=== PATIENT | male | born 1940 | race Asian ===

== ENCOUNTER 2019-07-11 06:53 | Inpatient (IN) | payer OTHER, MEDICAID ==
[~2019-07-11] VITALS: Ht 167.6 cm; Wt 69.9 kg
[2019-07-11 06:53] VITALS: BP_SYST 186
--- NOTE | 2019-07-11 06:53 | NUR ---
Pt biba to bed 2 for evaluation
[2019-07-11] MEDS ORDERED: NS 500 ML IV ONE (07:00)
[2019-07-11] MEDS ORDERED: PANTOPRAZOLE SODIUM 40 MG/VIAL (PROTONIX) IVP ONE (07:00)
[2019-07-11] MEDS ORDERED: ONDANSETRON HCL 4 MG/2 ML VIAL IVP ONE (07:00)
--- NOTE | 2019-07-11 07:15 | NUR ---
Pt bib EMS c/o N/V from [facility].Pt hypertensive upon presentation. Pt denies pain at this time.
[2019-07-11] MEDS ORDERED: LIP10 PO (07:22)
[2019-07-11] MEDS ORDERED: NOR10 PO (07:22)
[2019-07-11] MEDS ORDERED: DOCU-144 PO (07:23)
[2019-07-11] MEDS ORDERED: TAMS-11 PO (07:24)
[2019-07-11] MEDS ORDERED: COR25 PO (07:24)
--- NOTE | 2019-07-11 07:25 | NUR ---
ER at bedside examining patient.
[2019-07-11] MEDS ORDERED: HYDR-4038 PO (07:26)
[2019-07-11] MEDS ORDERED: FURO-149 PO (07:27)
[2019-07-11] MEDS ORDERED: INSU100V11 SQ (07:27)
[2019-07-11] MEDS ORDERED: RIVA15TA PO (07:28)
[2019-07-11] MEDS ORDERED: METF1000 PO (07:28)
[2019-07-11 07:31] LABS: BASOPHILS # (AUTO) 0.1 K/uL (0.0-0.2); BASOPHILS % (AUTO) 0.8 % (0.0-2.0); EOSINOPHILS # (AUTO) 0.3 K/uL (0.0-0.4); EOSINOPHILS % (AUTO) 2.4 % (0.0-4.0); HEMATOCRIT 39.5 % (36-54); HEMOGLOBIN 13.8 g/dL (14.0-18.0); LYMPHOCYTES # (AUTO) 1.4 K/uL (1.0-5.5); LYMPHOCYTES % (AUTO) 10.8 % (20.5-51.5); MEAN CORPUSCULAR HEMOGLOBIN 31 pg (27-31); MEAN CORPUSCULAR HGB CONC 35 % (32-36); MEAN CORPUSCULAR VOLUME 90 fL (79.0-98.0); MONOCYTES # (AUTO) 0.6 K/uL (0.0-1.0); MONOCYTES % (AUTO) 4.7 % (1.7-9.3); NEUTROPHILS # (AUTO) 10.5 K/uL (1.8-7.7); NEUTROPHILS % (AUTO) 81.3 % (40.0-70.0); PLATELET COUNT (AUTO) 216 K/uL (130-430); RED BLOOD CELL COUNT(AUTO) 4.39 MIL/uL (4.2-6.2); RED CELL DISTRIBUTION WIDTH 13.1 % (9.0-15.0); WHITE BLOOD COUNT (AUTO) 12.9 K/uL (4.8-10.8)
[2019-07-11] MEDS ORDERED: SSREG SUBCUT (07:33)
--- NOTE | 2019-07-11 07:33 | NUR ---
Medication reconciliation completed with information provided by [facility]. Any prior medication reconciliation on file was reviewed and corrected.
[2019-07-11 07:46] LABS: ANION GAP 8 (5-15); CALCIUM 9.4 mg/dL (8.4-11.0); CHLORIDE 106 mmol/L (98-107); CREATININE 2.01 mg/dL (0.55-1.30); GLUCOSE 121 mg/dL (70-99); POTASSIUM 3.5 mmol/L (3.5-5.1); SODIUM SERUM 142 mmol/L (136-145); UREA NITROGEN, BLOOD 28 mg/dL (8-21)
[2019-07-11] MEDS ORDERED: ONDANSETRON HCL 4 MG/2 ML VIAL ONE (07:51)
[2019-07-11 07:52] LABS: ALANINE AMINOTRANSFERASE 21 U/L (12-78); ALBUMIN 3.2 g/dL (3.4-4.8); ASPARTATE AMINOTRANSFERASE 18 U/L (10-37); LIPASE 176 U/L (73-393); TOTAL BILIRUBIN 0.4 mg/dL (0.0-1.0)
--- NOTE | 2019-07-11 08:10 | NUR ---
Pt tolerating medication well.
[2019-07-11] MEDS ORDERED: cloNIDine HCL 0.1 MG TABLET PO ONE (08:15)
--- NOTE | 2019-07-11 08:34 | NUR ---
Patient will be admitted to care of Dr. Garcia. Admitted to Med/Surg unit. Will go to room 132C. Summary report printed. Report will be given at bedside.
[2019-07-11] MEDS ORDERED: ONDANSETRON HCL 4 MG/2 ML VIAL IVP PRN (08:45)
--- NOTE | 2019-07-11 09:26 | NUR ---
ADMIT: Received from ER on a gurney with diagnosis of intractable vomiting and diarrhea. Oriented x3. Denies pain, no vomiting. Oriented to room, call light within reach.
[2019-07-11 09:29] VITALS: BP_SYST 154
--- NOTE | 2019-07-11 09:30 | NUR ---
RN ROUNDS: PATIENT IS AWAKE AND ALERT x 4 LAYING DOWN IN BED. PATIENT DENIES ANY PAIN AT THE MOMENT. PATIENT IS TOLERATING OXYGEN ON ROOM AIR. NO SIGNS OF DISTRESS OR SHORTNESS OF BREATH NOTED. IV SITE IS PATENT WITH NO SIGNS OF INFILTRATION. PATIENT IN STABLE CONDITION. SAFETY, FALL AND ASPIRATION PRECAUTIONS ARE IN PLACE. BED LOCKED IN LOWEST POSITION WITH CALL LIGHT IN REACH. WILL CONTINUE TO MONITOR PATIENT.
[2019-07-11] MEDS: POTASSIUM CHLORIDE 20 MEQ in D5/0.45 NS 1,000 ML IV SCH ×2 (10:56→21:07)
[2019-07-11 12:00] VITALS: BP_SYST 168
--- NOTE | 2019-07-11 12:10 | NUR ---
RN ROUNDS: PATIENT IS AWAKE AND ALERT x4 LAYING IN BED. PATIENT DENIES ANY PAIN AT THE MOMENT. NO SIGNS OF DISTRESS OR SHORTNESS OF BREATH NOTED. PATIENT IN STABLE CONDITION. WILL CONTINUE TO MONITOR PATIENT FOR ANY CHANGES.
--- NOTE | 2019-07-11 14:20 | NUR ---
RN ROUNDS: PATIENT IS AWAKE AND ALERT x 4 IN BED. PATIENT DENIES ANY PAIN AT THE MOMENT. NO SIGNS OF DISTRESS OR SHORTNESS OF BREATH NOTED. PATIENT IN STABLE CONDITION. WILL CONTINUE TO MONITOR PATIENT FOR ANY CHANGES.
[2019-07-11] MEDS ORDERED: D5W 1,000 ML IV PRN (15:00)
[2019-07-11] MEDS ORDERED: GLUCOSE 15 GM GEL (in 37.5 GM TUBE) PO PRN (15:00)
[2019-07-11] MEDS ORDERED: DEXTROSE 50%-WATER 50 ML DISP.SYRIN IVP PRN (15:00)
[2019-07-11] MEDS: hydrALAZINE HCL 25 MG TABLET PO SCH ×2 (15:54→20:40)
[2019-07-11 16:00] VITALS: BP_SYST 173
--- NOTE | 2019-07-11 16:15 | NUR ---
RN ROUNDS: PATIENT IS AWAKE AND ALERT x 4 LAYING IN BED. PATIENT DENIES ANY PAIN AT THE MOMENT. NO SIGNS OF DISTRESS OR SHORTNESS OF BREATH NOTED. PATIENT TOLERATING OXYGEN AT ROOM AIR. PATIENT IN STABLE CONDITION. WILL CONTINUE TO MONITOR PATIENT FOR ANY CHANGES.
[2019-07-11] MEDS: INSULIN REGULAR, HUMAN 100 UNITS/ML, 10 ML VIAL (humuLIN R) SUBCUT PRN ×2 (17:12→21:04)
--- NOTE | 2019-07-11 18:42 | NUR ---
CLOSING NOTES: PATIENT IS AWAKE AND ALERT x 4 LAYING DOWN IN BED. PATIENT DENIES ANY PAIN AT THE MOMENT. PATIENT IS TOLERATING OXYGEN ON ROOM AIR. NO SIGNS OF DISTRESS OR SHORTNESS OF BREATH NOTED. IV SITE IS PATENT WITH NO SIGNS OF INFILTRATION. PATIENT IN STABLE CONDITION. SAFETY, FALL AND ASPIRATION PRECAUTIONS ARE IN PLACE. BED LOCKED IN LOWEST POSITION WITH CALL LIGHT IN REACH. WILL ENDORSE PATIENT CARE TO ONCOMING MARKETING COORDINATOR NURSE.
--- NOTE | 2019-07-11 19:25 | NUR ---
OPENING NOTES RECEIVED PATIENT IN BED AAO X4. BREATHING UNLABORED ON ROOM AIR. DENIES ANY PAIN AT THIS TIME. IVF INFUSING ORDERED. BED IN LOWEST LOCKED POSITION. CALL LIGHT WITH IN REACH. BED ALARM ON.
[2019-07-11 20:28] VITALS: BP_SYST 181
[2019-07-11] MEDS: DOCUSATE SODIUM 100 MG CAPSULE PO SCH (20:40)
[2019-07-11] MEDS: TAMSULOSIN HCL 0.4 MG CAP PO SCH (20:41)
[2019-07-11] MEDS: ATORVASTATIN 10 MG TABLET PO SCH (20:41)
[2019-07-11] MEDS: CARVEDILOL 25 MG TABLET (COREG) PO SCH (20:41)
[2019-07-11] MEDS: PANTOPRAZOLE SODIUM 40 MG TAB PO SCH (20:41)
[2019-07-11] MEDS: INSULIN GLARGINE 100 UNITS/ML 10 ML VIAL SUBCUT SCH (20:46)
[2019-07-11] MEDS: metroNIDAZOLE 500 mg/NS 100 ML IV SCH (21:07)
--- NOTE | 2019-07-11 21:07 | NUR ---
MED PASS PATIENT DUE MEDICATIONS GIVEN AND TOLERATED. DUE ANTIBIOTIC INFUSED. IV LINE INTACT TO RT HAND.
--- NOTE | 2019-07-12 00:35 | NUR ---
ROUNDS PATIENT RESTING IN BED. NO DISTRESS NOTED. IVF INFUSING ORDERED. VITAL SIGNS STABLE.
[2019-07-12 01:23] VITALS: BP_SYST 152
--- NOTE | 2019-07-12 02:00 | NUR ---
ROUNDS NO CHANGE IN CONDITION. CALL LIGHT WITH IN REACH.
--- NOTE | 2019-07-12 04:40 | NUR ---
ROUNDS PATIENT RESTING IN BED. BREATHING UNLABORED. IVF INFUSING.
--- NOTE | 2019-07-12 05:20 | NUR ---
AM CARE INCONTINENCE CARE DONE. NO BM/DIARRHEA NOTED.
[2019-07-12] MEDS: metroNIDAZOLE 500 mg/NS 100 ML IV SCH ×3 (05:44→21:10)
[2019-07-12] MEDS: INSULIN REGULAR, HUMAN 100 UNITS/ML, 10 ML VIAL (humuLIN R) SUBCUT PRN ×2 (05:53→18:40)
[2019-07-12 05:59] LABS: BASOPHILS % (AUTO) 0.3 % (0.0-2.0); EOSINOPHILS # (AUTO) 0.3 K/uL (0.0-0.4); EOSINOPHILS % (AUTO) 2.1 % (0.0-4.0); HEMATOCRIT 33.4 % (36-54); HEMOGLOBIN 11.6 g/dL (14.0-18.0); LYMPHOCYTES # (AUTO) 1.7 K/uL (1.0-5.5); MEAN CORPUSCULAR HEMOGLOBIN 31 pg (27-31); MEAN CORPUSCULAR HGB CONC 35 % (32-36); MEAN CORPUSCULAR VOLUME 90 fL (79.0-98.0); MONOCYTES # (AUTO) 0.7 K/uL (0.0-1.0); MONOCYTES % (AUTO) 4.1 % (1.7-9.3); NEUTROPHILS # (AUTO) 13.9 K/uL (1.8-7.7); NEUTROPHILS % (AUTO) 83.5 % (40.0-70.0); PLATELET COUNT (AUTO) 192 K/uL (130-430); RED CELL DISTRIBUTION WIDTH 13.2 % (9.0-15.0); WHITE BLOOD COUNT (AUTO) 16.7 K/uL (4.8-10.8)
[2019-07-12 06:02] LABS: ANION GAP 3 (5-15); CHLORIDE 107 mmol/L (98-107); CREATININE 2.22 mg/dL (0.55-1.30); GLUCOSE 173 mg/dL (70-99); POTASSIUM 3.3 mmol/L (3.5-5.1); SODIUM SERUM 136 mmol/L (136-145); UREA NITROGEN, BLOOD 22 mg/dL (8-21)
--- NOTE | 2019-07-12 06:35 | NUR ---
CLOSING NOTES PATIENT RESTING IN BED. BREATHING UNLABORED ON 02 2L NC. IVF INFUSING WITH IV LINE INTACT. NO C/O PAIN. PATIENT NEEDS ATTENDED. BED IN LOWEST LOCKED POSITION WITH ALARM ON. CALL LIGHT WITH IN REACH.
--- NOTE | 2019-07-12 07:15 | NUR ---
received report at the bedside. patient aaox 4. breathing even and unlabored. has oxygen two liters per nasal cannula. abdomen soft and non distended. has iv access on the rt hand #22. D51.2NS +20kcl at 75cc/hr infusing on well. incontinent of urine and bowel. bed low position, alarmed and locked. call lights within reach. continue to monitor patients status
[2019-07-12 07:37] VITALS: BP_SYST 130
--- NOTE | 2019-07-12 09:00 | NUR ---
dr perez called for order. wheezing and non productive cough and congestion. awaiting to call back.
--- NOTE | 2019-07-12 09:20 | NUR ---
DUE MEDICATION GIVEN ORDERED.
[2019-07-12] MEDS: PANTOPRAZOLE SODIUM 40 MG TAB PO SCH ×2 (09:37→20:59)
[2019-07-12] MEDS: DOCUSATE SODIUM 100 MG CAPSULE PO SCH ×2 (09:38→20:58)
[2019-07-12] MEDS: CARVEDILOL 25 MG TABLET (COREG) PO SCH ×2 (09:38→20:58)
[2019-07-12] MEDS: hydrALAZINE HCL 25 MG TABLET PO SCH ×3 (09:38→20:58)
--- NOTE | 2019-07-12 09:38 | NUR ---
med pass. assists on adls.
[2019-07-12] MEDS: amLODIPine BESYLATE 10 MG TABLET PO SCH (09:39)
[2019-07-12] MEDS: RIVAROXABAN 15 MG TABLET PO SCH (09:50)
--- NOTE | 2019-07-12 09:55 | NUR ---
Nutrition Update Marin Scale 16 noted. Pt admitted for intractable nausea and vomiting. Diet: CCHO, mechanical soft BMI: 28.7 kg/m2 RD to follow per nutrition care standards.
--- NOTE | 2019-07-12 10:19 | NUR ---
PAGED DR FAIR FOR ORDERS
[2019-07-12 11:18] VITALS: BP_SYST 162
--- NOTE | 2019-07-12 11:18 | NUR ---
LATEST BS 138MG/DL. NO COVERAGE GIVEN.
[2019-07-12] MEDS: POTASSIUM CHLORIDE 20 MEQ in D5/0.45 NS 1,000 ML IV SCH (14:38)
--- NOTE | 2019-07-12 15:00 | NUR ---
SLEEPING AND RESTING. LOTS OF CRACKLES AND WHEEZING NOTED. CALLED RESPIRATORY THERAPIST TO GIVE TREATMENT
[2019-07-12 15:29] VITALS: BP_SYST 135
[2019-07-12] MEDS: LevALBUTEROL HCL 1.25 MG/0.5 ML *CONC.* VIAL.NEB (XOPENEX CONC.) INH PRN ×2 (16:09→21:01)
[2019-07-12 16:30] VITALS: BP_SYST 135
--- NOTE | 2019-07-12 17:30 | NUR ---
LATEST BS 174 MG/DL. COVERAGE GIVEN.
--- NOTE | 2019-07-12 18:10 | NUR ---
ENDORSED TO INCOMING NURSE CRISTY STRANGE
[2019-07-12] MEDS ORDERED: POTASSIUM CHLORIDE 20 MEQ/PKT PACKET PO ONE (18:45)
--- NOTE | 2019-07-12 19:25 | NUR ---
OPENING NOTES RECEIVED PATIENT IN BED AAO X4. BREATHING UNLABORED BUT AUDIBLE WHEEZING NOTED ON 02 2L NC. DENIES PAIN AT THIS TIME. IVF IN FUSING ORDERED WITH IV LINE INTACT. BE DIN LOWEST LOCKED POSITION WITH ALARM ON. CALL LIGHT WITH IN EASY REACH.
[2019-07-12 20:49] VITALS: BP_SYST 160
[2019-07-12] MEDS: ATORVASTATIN 10 MG TABLET PO SCH (20:58)
[2019-07-12] MEDS: TAMSULOSIN HCL 0.4 MG CAP PO SCH (20:58)
--- NOTE | 2019-07-12 21:00 | NUR ---
MED PASS PATIENT DUE MEDICATIONS GIVEN AND TOLERATED. CALLED RT FOR BREATHING TREATMENT FOR PATIENT WHEEZING. VITAL SIGNS STABLE.
[2019-07-12] MEDS: INSULIN GLARGINE 100 UNITS/ML 10 ML VIAL SUBCUT SCH (21:05)
--- NOTE | 2019-07-12 23:00 | NUR ---
ROUNDS PATIENT RESTING IN BED. NO DISTRESS NOTED. CALL LIGHT WITH IN REACH.
[2019-07-13] VITALS: BP_SYST 141
--- NOTE | 2019-07-13 01:27 | NUR ---
ROUNDS PATIENT RESTING IN BED. BREATHING UNLABORED ON 02 2L NC. VITAL SIGNS STABLE. BED ALARM ON.. CALL LIGHT WITH IN REACH.
--- NOTE | 2019-07-13 02:00 | NUR ---
INCONTINENCE INCONTINENCE CARE DONE. ALL LINENS CHANGED. PATIENT KEPT WARMED WITH BLANKETS.
--- NOTE | 2019-07-13 04:15 | NUR ---
ROUNDS PATIENT RESTING IN BED. NO DISTRESS NOTED. IVF INFUSING.
[2019-07-13] MEDS: metroNIDAZOLE 500 mg/NS 100 ML IV SCH ×3 (05:42→22:59)
[2019-07-13] MEDS: POTASSIUM CHLORIDE 20 MEQ in D5/0.45 NS 1,000 ML IV SCH ×2 (05:43→13:30)
[2019-07-13 06:05] LABS: BASOPHILS % (AUTO) 0.2 % (0.0-2.0); EOSINOPHILS # (AUTO) 0.3 K/uL (0.0-0.4); EOSINOPHILS % (AUTO) 3.8 % (0.0-4.0); HEMOGLOBIN 10.5 g/dL (14.0-18.0); LYMPHOCYTES # (AUTO) 1.5 K/uL (1.0-5.5); LYMPHOCYTES % (AUTO) 18.8 % (20.5-51.5); MEAN CORPUSCULAR HEMOGLOBIN 32 pg (27-31); MEAN CORPUSCULAR HGB CONC 35 % (32-36); MEAN CORPUSCULAR VOLUME 92 fL (79.0-98.0); MONOCYTES # (AUTO) 0.6 K/uL (0.0-1.0); MONOCYTES % (AUTO) 7.3 % (1.7-9.3); NEUTROPHILS # (AUTO) 5.5 K/uL (1.8-7.7); NEUTROPHILS % (AUTO) 69.9 % (40.0-70.0); PLATELET COUNT (AUTO) 152 K/uL (130-430); RED BLOOD CELL COUNT(AUTO) 3.28 MIL/uL (4.2-6.2); WHITE BLOOD COUNT (AUTO) 7.8 K/uL (4.8-10.8)
[2019-07-13 06:11] LABS: ANION GAP 5 (5-15); CALCIUM 7.6 mg/dL (8.4-11.0); CHLORIDE 106 mmol/L (98-107); CREATININE 2.13 mg/dL (0.55-1.30); GLUCOSE 112 mg/dL (70-99); POTASSIUM 3.6 mmol/L (3.5-5.1); SODIUM SERUM 135 mmol/L (136-145); UREA NITROGEN, BLOOD 20 mg/dL (8-21)
--- NOTE | 2019-07-13 06:28 | NUR ---
CLOSING NOTES PATIENT RESTING IN BED. NO C/O PAIN. IVF INFUSING WITH IV LINE INTACT. AM FINGER STICK SUGAR 103. PATIENT NEEDS ATTENDED. BED IN LOWEST LOCKED POSITION WITH ALARM ON. CALL LIGHT WITH IN REACH.
--- NOTE | 2019-07-13 07:15 | NUR ---
sbar report received at the bedside. patient aaox 4. breathing even and unlabored. has oxygen 2lnc. O2 Sat 94%. slight wheezing noted. called the respiratory therapist. abdomen soft and non distended. has iv access on the rt hand #22 with iv fluids of D51/2NS kcl +20meq at 75cc/hr infusing on well. bed low position, alarmed and locked. call lights within reach. skin intact. no skin breakdown noted. sacral area noted redness. apply barrier cream. at this time. turn to sides. continue to monitor
[2019-07-13 08:00] VITALS: BP_SYST 149
--- NOTE | 2019-07-13 08:00 | NUR ---
student nurse made bed bath at the bedside. no sob noted.
[2019-07-13] MEDS: LevALBUTEROL HCL 1.25 MG/0.5 ML *CONC.* VIAL.NEB (XOPENEX CONC.) INH PRN ×3 (08:20→23:35)
[2019-07-13] MEDS: amLODIPine BESYLATE 10 MG TABLET PO SCH (08:46)
[2019-07-13] MEDS: PANTOPRAZOLE SODIUM 40 MG TAB PO SCH ×2 (08:47→22:59)
[2019-07-13] MEDS: RIVAROXABAN 15 MG TABLET PO SCH (08:47)
[2019-07-13] MEDS: DOCUSATE SODIUM 100 MG CAPSULE PO SCH ×2 (08:47→23:00)
[2019-07-13] MEDS: CARVEDILOL 25 MG TABLET (COREG) PO SCH ×2 (08:48→23:01)
[2019-07-13] MEDS: hydrALAZINE HCL 25 MG TABLET PO SCH ×3 (08:48→23:00)
--- NOTE | 2019-07-13 09:00 | NUR ---
due medication given as ordered. made comfortable.
--- NOTE | 2019-07-13 10:00 | NUR ---
incontinence care done.
--- NOTE | 2019-07-13 11:25 | NUR ---
latest BS 144 mg/dl no coverage given. pt stable no sob noted no complain made. lungs slightly congested O2 sat 93%. HOB elevated call light with in reach.
[2019-07-13 12:00] VITALS: BP_SYST 138
--- NOTE | 2019-07-13 13:10 | NUR ---
still eating lunch. no sob noted.
--- NOTE | 2019-07-13 13:30 | NUR ---
pt. turned to left barrier cream applied no skin break down noted. shara care and skin care done. pt comfortable call light at bedside.
--- NOTE | 2019-07-13 14:06 | NUR ---
pt. bladder scan done >300 urine retention. notified
--- NOTE | 2019-07-13 14:19 | NUR ---
CONSULTATION PAGED/CALLED Reason for Consultation: [] URINARY RETENTION Person Who was Notified: [] TIANNA Consulting Physician: [] DR Keya VELASCO Systems Checkout Mechanic Specialty: [] UROLOGY Ordering Physician: [] DR Israel FAIR
--- NOTE | 2019-07-13 14:40 | NUR ---
Dr. Moya came made orders
--- NOTE | 2019-07-13 15:07 | NUR ---
awaiting for Dr. Rasta Morse urologist to come to evaluate pt.
--- NOTE | 2019-07-13 15:35 | NUR ---
Josephine MATOS of dr broderick conley after inserted gauge #16 horvath has lots of muscle spasms and urine came out from the penis and lots of urine about 200
--- NOTE | 2019-07-13 15:35 | NUR ---
Dr Josephine Maharaj of Dr Rasta Morse came and inserted horvath catheter #16. output 500 cc davide yellow urine. and sent urinalysis and urine culture and sent to lab.
[2019-07-13 16:03] LABS: BILIRUBIN,URINE NEGATIVE (NEGATIVE); CLARITY/URINE SL HAZY (CLEAR); COLOR,URINE YELLOW (YELLOW); GLUCOSE,URINE 1+ (NEGATIVE); KETONES,URINE NEGATIVE (NEGATIVE); LEUKOCYTE ESTERASE ,URINE NEGATIVE (NEGATIVE); NITRITE, URINE POSITIVE (NEGATIVE); PH,URINE 6.5 (5.0-8.0); PROTEIN URINE 3+ (NEGATIVE); UROBILINOGEN,URINE 0.2 (0.2-1.0)
[2019-07-13 16:14] LABS: BLOOD, URINE TRACE (NEGATIVE)
[2019-07-13 16:19] LABS: BACTERIA,URINE FEW /HPF (None Seen); COARSE GRANULAR CASTS,URINE 0-10 /LPF (None Seen); FINE GRANULAR CASTS,URINE 0-10 /LPF (None Seen); MUCUS,URINE 1+ /LPF (None Seen); RBC,URINE 0-3 /HPF (0-3); URINE AMORPHOUS URATE 2+ /HPF (None Seen)
--- NOTE | 2019-07-13 16:24 | NUR ---
verbalized feels much better after horvath insertion.
--- NOTE | 2019-07-13 17:00 | NUR ---
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
--- NOTE | 2019-07-13 17:36 | NUR ---
latest bs 105 mg.dl. no coverage given as ordered.
--- NOTE | 2019-07-13 18:10 | NUR ---
patient moved to room 112=A. patient on mrsa on the nares positive.
--- NOTE | 2019-07-13 18:11 | NUR ---
if patients coughs urine comes out from the penis not the horvath catheter.
[2019-07-13 21:32] VITALS: BP_SYST 137
--- NOTE | 2019-07-13 22:45 | NUR ---
BLOOD SUGAR BSG 141 mg dl patient awake alert no DIABETIC REACTION NOTED .
[2019-07-13] MEDS: TAMSULOSIN HCL 0.4 MG CAP PO SCH (22:59)
[2019-07-13] MEDS: ATORVASTATIN 10 MG TABLET PO SCH (23:00)
[2019-07-13] MEDS: MUPIROCIN 2% TOPICAL OINTMENT 22 GM NS SCH (23:01)
[2019-07-13] MEDS: INSULIN GLARGINE 100 UNITS/ML 10 ML VIAL SUBCUT SCH (23:03)
--- NOTE | 2019-07-13 23:45 | NUR ---
PATIENT FREQUENT PULLING ON JOSEPH CATHETER , PROCEDURES EXPLAINED REMIND PATIENT NOT TO PULL ON CATHETER .
--- NOTE | 2019-07-14 | NUR ---
BLADDER SCAN DONE 24 ML NOTED .
[2019-07-14 01:52] VITALS: BP_SYST 166
--- NOTE | 2019-07-14 02:45 | NUR ---
HOURLY ROUNDING PATIENT Resting HOB elevated Nebulizer Tx as needed chest movement symmetrical FALL MEASURES IMPLEMENTED .
--- NOTE | 2019-07-14 03:23 | NUR ---
NEBULIZER TREATMENT Tx given for Respiratory wheezing HOB kept elevated comfort measures helpful .
[2019-07-14] MEDS: LevALBUTEROL HCL 1.25 MG/0.5 ML *CONC.* VIAL.NEB (XOPENEX CONC.) INH PRN ×2 (03:27→07:30)
[2019-07-14] MEDS: metroNIDAZOLE 500 mg/NS 100 ML IV SCH ×3 (06:24→21:17)
[2019-07-14] MEDS: INSULIN REGULAR, HUMAN 100 UNITS/ML, 10 ML VIAL (humuLIN R) SUBCUT PRN ×3 (06:25→21:22)
[2019-07-14 06:27] LABS: BASOPHILS % (AUTO) 0.1 % (0.0-2.0); EOSINOPHILS # (AUTO) 0.1 K/uL (0.0-0.4); EOSINOPHILS % (AUTO) 1.6 % (0.0-4.0); HEMATOCRIT 35.7 % (36-54); HEMOGLOBIN 12.4 g/dL (14.0-18.0); LYMPHOCYTES # (AUTO) 1.1 K/uL (1.0-5.5); LYMPHOCYTES % (AUTO) 14.1 % (20.5-51.5); MEAN CORPUSCULAR HEMOGLOBIN 32 pg (27-31); MEAN CORPUSCULAR HGB CONC 35 % (32-36); MEAN CORPUSCULAR VOLUME 91 fL (79.0-98.0); MONOCYTES # (AUTO) 0.4 K/uL (0.0-1.0); MONOCYTES % (AUTO) 5.2 % (1.7-9.3); NEUTROPHILS # (AUTO) 5.9 K/uL (1.8-7.7); PLATELET COUNT (AUTO) 177 K/uL (130-430); RED BLOOD CELL COUNT(AUTO) 3.93 MIL/uL (4.2-6.2); RED CELL DISTRIBUTION WIDTH 13.1 % (9.0-15.0); WHITE BLOOD COUNT (AUTO) 7.5 K/uL (4.8-10.8)
--- NOTE | 2019-07-14 06:36 | NUR ---
PHONES PAGED DR FAIR REGARDING WHEEZING , RETURN CALL PENDING .
--- NOTE | 2019-07-14 06:45 | NUR ---
PAGED PAGED REHANA GRIDER AT [phone] LEFT A VOICEMAIL WITH EXCHANGE.
[2019-07-14 06:46] LABS: ANION GAP 6 (5-15); CALCIUM 8.3 mg/dL (8.4-11.0); CHLORIDE 105 mmol/L (98-107); GLUCOSE 151 mg/dL (70-99); SODIUM SERUM 133 mmol/L (136-145); UREA NITROGEN, BLOOD 19 mg/dL (8-21)
--- NOTE | 2019-07-14 06:59 | NUR ---
PHONED PAGED DR MARV CROWE SECOND TIME FOR REQUEST FOR SOLU - MEDROL D/T WHEEZING , NEBULIZER TX GIVEN IN UP RIGHT POSITION & HELPFUL , CALL BACK PENDING .
--- NOTE | 2019-07-14 07:30 | NUR ---
Opening Notes Patient received lying in bed, 02 at 2lpm via NC, noted with wheezing and use of accessory muscle during respiration. Alert, awake and verbally responsive. Patient denies difficulty breathing. IV line remain to be in place and intact. Navarrete catheter ,inl place and intact, draining yellow urine with streak of blood, patient denies any pain on perineal area.Discussed plan of care and using of call light, patient verbalized understanding. Contact isolation observed. Call light within the reach. Bed alarm on, bed at lowest position, will continue to monitor.
--- NOTE | 2019-07-14 07:43 | NUR ---
Call back from Dr. Garcia Received a call back from MD notified regarding patient's condition, with new order for Xopenex breathing treatment Q 6 hours routine and continue with Q4 hours PRN, requested for solu-medrol MD did not order, telephone order read back, verified ,noted and carried out. RT at unit, notified.
[2019-07-14 08:15] VITALS: BP_SYST 164
[2019-07-14] MEDS: MUPIROCIN 2% TOPICAL OINTMENT 22 GM NS SCH ×2 (09:02→21:18)
[2019-07-14] MEDS: cefTRIAXone 1 GM in D5W 50 ML IV SCH (09:02)
[2019-07-14] MEDS: RIVAROXABAN 15 MG TABLET PO SCH (09:04)
[2019-07-14] MEDS: PANTOPRAZOLE SODIUM 40 MG TAB PO SCH ×2 (09:04→21:17)
[2019-07-14] MEDS: amLODIPine BESYLATE 10 MG TABLET PO SCH (09:05)
[2019-07-14] MEDS: DOCUSATE SODIUM 100 MG CAPSULE PO SCH ×2 (09:05→21:17)
[2019-07-14] MEDS: CARVEDILOL 25 MG TABLET (COREG) PO SCH ×2 (09:06→21:17)
[2019-07-14] MEDS: hydrALAZINE HCL 25 MG TABLET PO SCH ×3 (09:06→21:18)
--- NOTE | 2019-07-14 09:45 | NUR ---
RN ROUNDS Patient remain on 02 at 2lpm via NC, still noted with wheezing but denies any pain or discomfort at this time. Alert, awake and verbally responsive. Call light within the reach.
--- NOTE | 2019-07-14 10:14 | NUR ---
Dietitian Recommendations *Recommend Mechanical soft CCHO diet w/ Glucerna BID. ONS will provide additional 440 kcal and 20 gm protein daily. *Encourage pt to increase PO intake. Please see Nutritional Assessment for details. MEGAN, ROSEY
--- NOTE | 2019-07-14 11:45 | NUR ---
RN ROUNDS Patient resting well, denies any pain or discomfort at this time, respiration even and unlabored. Navarrete catherer still noted with blood tinged urine. Call light within the reach.
--- NOTE | 2019-07-14 12:15 | NUR ---
Discharge Planning: DCP faxed pt referral to [facility] (f [phone] p [phone]) DCP to follow up Addendum: 07/14/19 at 1336 by Shaye Muse DP [facility] (f [phone] p [phone]) Rm 8A, DCP made nurse aware DC order needed.
[2019-07-14 12:38] VITALS: BP_SYST 152
--- NOTE | 2019-07-14 13:30 | NUR ---
Dr. Garcia Rounds Seen and examined by MD, will follow-up for any new orders.
[2019-07-14] MEDS: LevALBUTEROL HCL 1.25 MG/0.5 ML *CONC.* VIAL.NEB (XOPENEX CONC.) INH SCH ×2 (13:40→20:30)
--- NOTE | 2019-07-14 15:15 | NUR ---
RN ROUNDS Patient respiration even and unlabored, on 02 at 2lpm via NC, denies any difficulty breathing. Call light within the reach. Will continue to monitor.
[2019-07-14 16:41] VITALS: BP_SYST 142
--- NOTE | 2019-07-14 17:30 | NUR ---
Daughter at bedside Patient's daughter at bedside, patient denies any pain or discomfort at this time. Call light within the reach.
--- NOTE | 2019-07-14 19:15 | NUR ---
Closing Notes Patient remain to be alert, awake and verbally responsive. Denies any pain or discomfort at this time. IV saline lock intact and in place. On 02 at 2lpm via NC. Navarrete catheter in place and intact, still noted with blood tinged urine, denies any pain or discomfort at this time. Call light within the reach. Contact isolation observed. Endorsed to night clerk auditorsteward/stewardess night.
[2019-07-14 20:09] VITALS: BP_SYST 143
--- NOTE | 2019-07-14 21:15 | NUR ---
PATIENT AWAKE ALERT HOB elevated verbally Responsive skin dry warm assist encourage position change chest movement symmetrical unlabored .
[2019-07-14] MEDS: TAMSULOSIN HCL 0.4 MG CAP PO SCH (21:17)
[2019-07-14] MEDS: ATORVASTATIN 10 MG TABLET PO SCH (21:18)
[2019-07-14] MEDS: INSULIN GLARGINE 100 UNITS/ML 10 ML VIAL SUBCUT SCH (21:21)
--- NOTE | 2019-07-14 23:06 | NUR ---
BACTROBAN APPLICATION APPLIED TO NARES ORDERED , PATIENT ON ISOLATION PROCEDURES EXPLAINED .
--- NOTE | 2019-07-14 23:24 | NUR ---
NEBULIZER TREATMENT ADMINISTER ROUTINE FOR WHEEZING & HELPFUL , HOB KEPT ELEVATED ASSIST NEEDED .
[2019-07-15] MEDS: LevALBUTEROL HCL 1.25 MG/0.5 ML *CONC.* VIAL.NEB (XOPENEX CONC.) INH SCH ×4 (00:29→23:55)
[2019-07-15 00:38] VITALS: BP_SYST 158
--- NOTE | 2019-07-15 01:10 | NUR ---
HOURLY ROUNDING PATIENT RESTING BED ALARM ON SAFETY MEASURES EFFECTIVE FALL PRECAUTIONS .
--- NOTE | 2019-07-15 05:29 | NUR ---
Reposition & Turning off loading with pillow on two hour schedule kept clean also dry as needed SAFETY MEASURES EFFECTIVE / .
[2019-07-15] MEDS: metroNIDAZOLE 500 mg/NS 100 ML IV SCH ×3 (06:44→22:13)
--- NOTE | 2019-07-15 07:35 | NUR ---
Opening Notes Patient received lying comfortably in his bed with respiration even and unlabored. Alert, awake and verbally responsive. On 02 at 2lpm via NC, still noted with wheezing but no SOB, no acute distress noted at this time. Navarrete catheter intact and patent draining yellow blood tinged urine to urine bag via gravity, denies any perineal discomfort. IV line intact and in place. Call light within the reach. Fall precaution and contact isolation observed. Bed at lowest position, bed alarm on. Will continue to monitor.
[2019-07-15 08:00] VITALS: BP_SYST 156
[2019-07-15] MEDS: DOCUSATE SODIUM 100 MG CAPSULE PO SCH ×2 (09:00→21:55)
--- NOTE | 2019-07-15 09:15 | NUR ---
Medication administration Patient educated with medication administration and its potential side effects, patient verbalized understanding, all due medications given as ordered, well tolerated. Call light within the reach.
[2019-07-15] MEDS: cefTRIAXone 1 GM in D5W 50 ML IV SCH (09:39)
[2019-07-15] MEDS: PANTOPRAZOLE SODIUM 40 MG TAB PO SCH ×2 (09:40→21:55)
[2019-07-15] MEDS: MUPIROCIN 2% TOPICAL OINTMENT 22 GM NS SCH ×2 (09:40→21:57)
[2019-07-15] MEDS: CARVEDILOL 25 MG TABLET (COREG) PO SCH ×2 (09:41→21:55)
[2019-07-15] MEDS: amLODIPine BESYLATE 10 MG TABLET PO SCH (09:41)
[2019-07-15] MEDS: hydrALAZINE HCL 25 MG TABLET PO SCH ×3 (09:41→21:56)
[2019-07-15] MEDS: RIVAROXABAN 15 MG TABLET PO SCH (09:43)
--- NOTE | 2019-07-15 11:20 | NUR ---
Blood sugar check Patients blood sugar is 157, regular insulin coverage given as ordered, well tolerated. No signs and symptoms of hypoglycemia or hyperglycemia noted. Call light within the reach.
[2019-07-15] MEDS: INSULIN REGULAR, HUMAN 100 UNITS/ML, 10 ML VIAL (humuLIN R) SUBCUT PRN ×2 (11:29→21:53)
[2019-07-15 12:27] VITALS: BP_SYST 150
--- NOTE | 2019-07-15 15:20 | NUR ---
Dr. Garcia Rounds Seen and examined by MD, will follow-up for any new orders.
[2019-07-15 16:45] VITALS: BP_SYST 145
--- NOTE | 2019-07-15 17:10 | NUR ---
Blood sugar check Blood sugar is 141, no insulin coverage needed, denies any hypoglycemia or hyperglycemia noted. Attended to needs and anticipated. Call light within the reach.
--- NOTE | 2019-07-15 18:40 | NUR ---
Closing Notes Patient remain to be alert, awake and verbally responsive. Denies any pain or discomfort at this time. IV line in place and intact. Navarrete catheter remain to be in place and draining yellow with blood-tinged urine to urine bag via gravity. Call light within the reach. Bed alarm on , bed at lowest position. Will endorse to the next shift.
--- NOTE | 2019-07-15 19:40 | NUR ---
ROUNDS PATIENT RESTING COMFORTABLY IN BED, VITALS STABLE, DENIES ANY PAIN AND DISCOMFORT AT THIS TIME. ASSESSMENT DONE AND DOCUMENTED. SEE FLOWSHEET. NEEDS ATTENDED TO. SAFETY AND FALL MEASURES IN PLACED. CALL LIGHT PLACED WITHIN REACH.
[2019-07-15 20:00] VITALS: BP_SYST 160
--- NOTE | 2019-07-15 21:13 | NUR ---
MEDICATIONS DUE MEDICATIONS GIVEN SCHEDULED, TOLERATED WELL. WILL CONTINUE TO MONITOR.
[2019-07-15] MEDS: INSULIN GLARGINE 100 UNITS/ML 10 ML VIAL SUBCUT SCH (21:52)
[2019-07-15] MEDS: TAMSULOSIN HCL 0.4 MG CAP PO SCH (21:54)
[2019-07-15] MEDS: ATORVASTATIN 10 MG TABLET PO SCH (21:55)
--- NOTE | 2019-07-16 00:15 | NUR ---
PATIENT RESTING: Patient resting quietly. No acute distress noted. Vital signs within normal range.
--- NOTE | 2019-07-16 02:13 | NUR ---
ROUNDS PATIENT ASLEEP, RESPIRATIONS EVEN AND UNLABORED, WILL CONTINUE TO MONITOR.
--- NOTE | 2019-07-16 04:15 | NUR ---
PATIENT RESTING: Patient resting quietly. No acute distress noted. Vital signs within normal range.
[2019-07-16] MEDS: metroNIDAZOLE 500 mg/NS 100 ML IV SCH ×3 (05:22→21:15)
[2019-07-16 07:08] LABS: ANION GAP 7 (5-15); CALCIUM 8.1 mg/dL (8.4-11.0); CHLORIDE 107 mmol/L (98-107); CREATININE 1.95 mg/dL (0.55-1.30); GLUCOSE 133 mg/dL (70-99); POTASSIUM 3.5 mmol/L (3.5-5.1); SODIUM SERUM 136 mmol/L (136-145); UREA NITROGEN, BLOOD 19 mg/dL (8-21)
--- NOTE | 2019-07-16 07:25 | NUR ---
AM ROUNDS: PATIENT ON CONTACT ISOLATION FOR MRSA NARES,PRECAUTION RENDERED. RECEIVED REPORT FROM NIGHT NURSE AL. JOSEPH DRAINING TO YELLOW URINE.CALL LIGHT WITH IN REACH. BED LOCKED AT LOWEST POSITION. NO ACUTE DISTRESS.
[2019-07-16] MEDS: LevALBUTEROL HCL 1.25 MG/0.5 ML *CONC.* VIAL.NEB (XOPENEX CONC.) INH SCH ×3 (07:28→19:46)
[2019-07-16 07:51] LABS: BASOPHILS % (AUTO) 0.3 % (0.0-2.0); EOSINOPHILS # (AUTO) 0.2 K/uL (0.0-0.4); EOSINOPHILS % (AUTO) 3.3 % (0.0-4.0); HEMOGLOBIN 11.5 g/dL (14.0-18.0); LYMPHOCYTES # (AUTO) 1.4 K/uL (1.0-5.5); LYMPHOCYTES % (AUTO) 19.9 % (20.5-51.5); MEAN CORPUSCULAR HEMOGLOBIN 31 pg (27-31); MEAN CORPUSCULAR HGB CONC 35 % (32-36); MEAN CORPUSCULAR VOLUME 90 fL (79.0-98.0); MONOCYTES # (AUTO) 0.6 K/uL (0.0-1.0); MONOCYTES % (AUTO) 8.1 % (1.7-9.3); NEUTROPHILS # (AUTO) 4.8 K/uL (1.8-7.7); NEUTROPHILS % (AUTO) 68.4 % (40.0-70.0); PLATELET COUNT (AUTO) 207 K/uL (130-430); RED BLOOD CELL COUNT(AUTO) 3.66 MIL/uL (4.2-6.2); RED CELL DISTRIBUTION WIDTH 13.1 % (9.0-15.0); WHITE BLOOD COUNT (AUTO) 7.1 K/uL (4.8-10.8)
[2019-07-16 08:20] VITALS: BP_SYST 165
[2019-07-16] MEDS: RIVAROXABAN 15 MG TABLET PO SCH (09:24)
[2019-07-16] MEDS: amLODIPine BESYLATE 10 MG TABLET PO SCH (09:28)
[2019-07-16] MEDS: CARVEDILOL 25 MG TABLET (COREG) PO SCH ×2 (09:29→21:09)
[2019-07-16] MEDS: DOCUSATE SODIUM 100 MG CAPSULE PO SCH ×2 (09:29→21:09)
[2019-07-16] MEDS: PANTOPRAZOLE SODIUM 40 MG TAB PO SCH ×2 (09:29→21:09)
[2019-07-16] MEDS: hydrALAZINE HCL 25 MG TABLET PO SCH ×3 (09:29→21:10)
--- NOTE | 2019-07-16 09:30 | NUR ---
MED PASS: PATIENT TOLERATED ALL ORAL MEDICATIONS,WITH NO PROBLEM.
[2019-07-16] MEDS: MUPIROCIN 2% TOPICAL OINTMENT 22 GM NS SCH ×2 (09:31→21:10)
[2019-07-16] MEDS: cefTRIAXone 1 GM in D5W 50 ML IV SCH (09:31)
[2019-07-16 11:04] VITALS: BP_SYST 153
--- NOTE | 2019-07-16 11:25 | NUR ---
Blood Sugar: Blood sugar taken,with insulin coverage per sliding scale. no problem.
[2019-07-16] MEDS: INSULIN REGULAR, HUMAN 100 UNITS/ML, 10 ML VIAL (humuLIN R) SUBCUT PRN ×2 (11:27→21:14)
--- NOTE | 2019-07-16 12:30 | NUR ---
RN ROUNDS: RESTING. ON SIDE LYING. NO DISTRESS.
--- NOTE | 2019-07-16 14:25 | NUR ---
Rn Rounds: Patient resting. No acute distress.
[2019-07-16 15:33] VITALS: BP_SYST 148
--- NOTE | 2019-07-16 16:00 | NUR ---
RN ROUNDS: SLEEPING DURING ROUNDS. STABLE.
--- NOTE | 2019-07-16 18:50 | NUR ---
Closing Notes: No acute distress. Call light with in reach. Bed locked at lowest position. bed alarm on. Practice guidelines met through out the shift.
[2019-07-16] MEDS: TAMSULOSIN HCL 0.4 MG CAP PO SCH (21:09)
[2019-07-16] MEDS: ATORVASTATIN 10 MG TABLET PO SCH (21:09)
[2019-07-16] MEDS: INSULIN GLARGINE 100 UNITS/ML 10 ML VIAL SUBCUT SCH (21:12)
--- NOTE | 2019-07-17 00:15 | NUR ---
PATIENT RESTING: Patient resting quietly. No acute distress noted. Vital signs within normal range.
[2019-07-17] MEDS: LevALBUTEROL HCL 1.25 MG/0.5 ML *CONC.* VIAL.NEB (XOPENEX CONC.) INH SCH ×2 (01:00→07:15)
[2019-07-17 01:43] VITALS: BP_SYST 151
--- NOTE | 2019-07-17 02:16 | NUR ---
PATIENT RESTING: Patient resting quietly. No acute distress noted. Vital signs within normal range.
--- NOTE | 2019-07-17 04:17 | NUR ---
PATIENT RESTING: Patient resting quietly. No acute distress noted. Vital signs within normal range.
[2019-07-17] MEDS: metroNIDAZOLE 500 mg/NS 100 ML IV SCH (05:26)
--- NOTE | 2019-07-17 06:05 | NUR ---
CLOSING NOTES PATIENT AWAKE, VITALS STABLE, NO COMPLAINTS AT THIS TIME. ACCU CHECK DONE, BLOOD SUGAR 93. NO INSULIN COVERAGE PER SLIDING SCALE. ALL NEEDS ATTENDED TO. SAFETY MEASURES MAINTAINED. CALL LIGHT PLACED WITHIN REACH.
--- NOTE | 2019-07-17 07:30 | NUR ---
Am Rounds: Patient awake during rounds. On contact isolation precaution. Call light with in reach. Bed locked at lowest position. Bed alarm on. Not in any respiratory distress. still with mild audible wheezing noted,asymptomatic.
[2019-07-17 07:50] VITALS: BP_SYST 157
[2019-07-17] MEDS: DOCUSATE SODIUM 100 MG CAPSULE PO SCH (09:00)
[2019-07-17] MEDS: PANTOPRAZOLE SODIUM 40 MG TAB PO SCH (09:11)
[2019-07-17] MEDS: CARVEDILOL 25 MG TABLET (COREG) PO SCH (09:12)
[2019-07-17] MEDS: RIVAROXABAN 15 MG TABLET PO SCH (09:12)
[2019-07-17] MEDS: amLODIPine BESYLATE 10 MG TABLET PO SCH (09:13)
[2019-07-17] MEDS: MUPIROCIN 2% TOPICAL OINTMENT 22 GM NS SCH (09:13)
[2019-07-17] MEDS: hydrALAZINE HCL 25 MG TABLET PO SCH (09:13)
[2019-07-17] MEDS: cefTRIAXone 1 GM in D5W 50 ML IV SCH (09:14)
--- NOTE | 2019-07-17 09:30 | NUR ---
Rn Rounds: Patient watching tv and resting. No distress.
--- NOTE | 2019-07-17 10:02 | NUR ---
Dc Order: With orders dc back to [facility] with same current medication order by Dr Garcia per Abbie Garcia charge nurse.
--- NOTE | 2019-07-17 11:04 | NUR ---
Discharge Planning: DCP verified with Mari at [facility] (p [phone]) pt is still going to Rm 8A, DCP arranged transportation with [facility] ([phone]) 1:00pm P/U BLS. Patient packet taken to nurse station nurse made aware.
[2019-07-17] MEDS: INSULIN REGULAR, HUMAN 100 UNITS/ML, 10 ML VIAL (humuLIN R) SUBCUT PRN (11:18)
--- NOTE | 2019-07-17 11:19 | NUR ---
Blood Sugar: Blood abcug=600ip/dl,Humulin R 2 units subq given per sliding scale,with no complications noted.
[2019-07-17 11:33] VITALS: BP_SYST 151
[2019-07-17 11:46] VITALS: BP_SYST 151
--- NOTE | 2019-07-17 12:11 | NUR ---
REPORT: REPORT GIVEN TO HIEU Quick RN FROM [facility].
--- NOTE | 2019-07-17 12:20 | NUR ---
CALLED SON: SPOKE WITH HELEN ,SON OF THE PATIENT AND INFORMED HIM PATIENT WILL BE TRANSFERRED BACK TO [facility] TODAY AT 13OO.
--- NOTE | 2019-07-17 13:00 | NUR ---
DC TRANSFER NOTES: TRANSFER PACKETS AND PATIENT'S PERSONAL BELONGINGS GIVEN TO [facility] EMT. IV REMOVED,DRY GAUZE APPLIED,NO ACTIVE BLEEDING THIS TIME. TO KEEP JOSEPH CATHETER PER URO. [facility] TRANSPORTED PATIENT BACK TO [facility] IN STABLE CONDITION VIA S AMBULANCE.
== END 2019-07-17 13:00 | DRG 871 ==
LOC: SED 06:53 → SMU 08:31
PROVIDERS: ADMIT Family Medicine; ATTEND Family Medicine
DX: A41.9 Sepsis, unspecified organism (principal); N17.0 Acute kidney failure with tubular necrosis; K92.2 Gastrointestinal hemorrhage, unspecified; N39.0 Urinary tract infection, site not specified; K52.9 Noninfective gastroenteritis and colitis, unspecified; E86.0 Dehydration; E11.22 Type 2 diabetes mellitus with diabetic chronic kidney disease; N18.9 Chronic kidney disease, unspecified; I12.9 Hypertensive chronic kidney disease with stage 1 through stage 4 chronic kidney disease, or unspecified chronic kidney disease; E78.5 Hyperlipidemia, unspecified; N40.1 Benign prostatic hyperplasia with lower urinary tract symptoms; R33.8 Other retention of urine; Z79.899 Other long term (current) drug therapy; I69.390 Apraxia following cerebral infarction
CPT/HCPCS: 36415; 71045; 76770; 80048; 80053; 81000-TC; 82962; 83690-TC; 83735-TC; 83880; 85025; 87081; 87086; 93005; 93306; 94640; 94760; 96361; 96374; 96375; 97110-GP; 97116-GP; 97530-GP; 99285; C9113; J0696; J1815; J2405; J3480; J3490; J7030; J7060; J7612